=== PATIENT | female | born 1980 | race Caucasian/White ===

== ENCOUNTER → 2019-10-06 14:30 | Observation (INO) ==
[~2019-10-06 14:30] MED LIST: Rho Immune Globulin 1,500 UNIT SYRINGE IM ONE
[2019-10-06 14:45] VITALS: BP 128/74
== END | disposition home or self-care (01) ==
LOC: 1NENULAB
PROVIDERS: ADMIT Student in an Organized Health Care Education/Training Program; ATTEND Student in an Organized Health Care Education/Training Program

== ENCOUNTER 2020-03-25 03:21 | Observation (INO) ==
[2020-03-24 23:01] LABS: Bacteria,Urine Few per hpf (None-Few); Bilirubin,Urine Negative (Negative); Blood,Urine Trace (Negative); Clarity,Urine Turbid (Clear); Color,Urine Yellow (Yellow); Glucose,Urine (UA) Normal (Normal); Hyaline Casts,Urine Few per lpf (None Seen); Ketones,Urine Negative (Negative); Leukocyte Esterase,Urine Large (Negative); Mucus,Urine Few per lpf (None-Few); Nitrite,Urine Negative (Negative); PH,Urine 6.5 pH Units (5.0-8.0); Protein,Urine Trace mg/dL (Neg-Trace); Specific Gravity,Urine 1.017 (1.010-1.025); Squamous Epithelial Cell,Urine Few per hpf (None-Few); WBC,Urine TNTC per hpf (0-3)
[2020-03-25] MEDS: Ringers Solution, Lactated 1,000 ML IVC SCH ×3 (00:03→23:07)
[2020-03-25 00:35] LABS: Eosinophils % 0.5 %; Mean Corpuscular HGB Conc 32.5 g/dL (31.6-35.5); Mean Corpuscular Hemoglobin 28.5 pg (28.0-33.3)
[2020-03-25 00:37] LABS: Basophils % 0.2 %; Eosinophils # 0.1 K/mcL (0.0-0.6); Hematocrit 35.1 % (35.3-44.9); Hemoglobin 11.4 g/dL (11.5-15.4); Immature Granulocytes % 0.4 % (0-4); Immature Platelets 10.2 % (1.1-6.1); Lymphocytes # 2.5 K/mcL (0.6-4.6); Lymphocytes % 16.2 %; Mean Corpuscular Volume 87.8 fL (83.0-100.0); Mean Platelet Volume 11.2 fL (9.4-12.4); Monocytes % 6.5 %; Neutrophils # 11.5 K/mcL (1.6-8.9); Platelet Count 231 K/mcL (140-400); Red Cell Distribution Width 13.5 % (11.5-14.5); Segmented Neutrophils % 76.2 %; White Blood Count 15.1 K/mcL (4.3-11.1)
[2020-03-25 00:54] LABS: Alanine Aminotransferase 39 Units/L (7-52); Aspartate Amino Transferase 28 Units/L (13-39); BUN/Creatinine Ratio 27 (6-26); Blood Urea Nitrogen 13 mg/dL (6-20); Lactate Dehydrogenase 154 Units/L (140-271); Uric Acid 4.1 mg/dL (2.3-7.6); eGFR For African Americans > 60 (> 60); eGFR For Non-African Americans > 60 (> 60)
[2020-03-25 01:35] LABS: Protein/Creatinine Ratio,Urine 0.55 mg/mg (0.00-0.20)
[2020-03-25 01:36] LABS: Amphetamine Screen,Urine Negative ng/mL (Cutoff=1000); Barbiturate Screen,Urine Negative ng/mL (Cutoff=200); Benzodiazepines Screen,Urine Negative ng/mL (Cutoff=200); Cannabinoid Screen,Urine Negative ng/mL (Cutoff = 50); Cocaine Screen,Urine Negative ng/mL (Cutoff= 300); Opiate Screen,Urine Negative ng/mL (Cutoff=300); Phencyclidine Screen,Urine Negative ng/mL (Cutoff=25)
[~2020-03-25 03:21] MED LIST changes: +Acetaminophen IV 1,000 MG/100 ML INFUS..BTL IVPB ONE; -Rho Immune Globulin 1,500 UNIT SYRINGE IM ONE; +cefTRIAXone 1,000 MG in 0.9 % Sodium Chloride Mini Bag 100 ML IVPB ONE
[2020-03-25] MEDS: *HR* Buprenorphine HCl 8 MG TAB.SUBL SL SCH ×2 (08:33→20:27)
[2020-03-25] MEDS ORDERED: cefTRIAXone 1,000 MG in Water for inj. (sterile) 10 ML IVPB SCH (23:00)
[2020-03-26 07:51] VITALS: BP 112/62
[2020-03-26] MEDS: *HR* Buprenorphine HCl 8 MG TAB.SUBL SL SCH (08:22)
[2020-03-26] MEDS: Ringers Solution, Lactated 1,000 ML IVC SCH (08:23)
== END 2020-03-26 12:18 | disposition home or self-care (01) ==
LOC: 1NENULAB → 1NENUOBS 13:09
PROVIDERS: ADMIT Obstetrics & Gynecology; ATTEND Obstetrics & Gynecology

== ENCOUNTER → 2020-03-27 16:15 | Observation (INO) ==
[~2020-03-27 16:15] MED LIST changes: -Acetaminophen IV 1,000 MG/100 ML INFUS..BTL IVPB ONE; +FLU Vac QV 20-21 (6Month+)/PF 0.5 ML SYRINGE IM ONE; -cefTRIAXone 1,000 MG in 0.9 % Sodium Chloride Mini Bag 100 ML IVPB ONE
== END | disposition home or self-care (01) ==
LOC: 1NENULAB
PROVIDERS: ADMIT Obstetrics & Gynecology; ATTEND Obstetrics & Gynecology

== ENCOUNTER 2020-04-04 01:17 | Inpatient (IN) ==
[2020-04-04 00:55] LABS: Bacteria,Urine Few per hpf (None-Few); Bilirubin,Urine Negative (Negative); Blood,Urine Negative (Negative); Clarity,Urine Clear (Clear); Color,Urine Yellow (Yellow); Glucose,Urine (UA) Normal (Normal); Ketones,Urine Negative (Negative); Leukocyte Esterase,Urine Small (Negative); Nitrite,Urine Negative (Negative); Protein,Urine Negative (Neg-Trace); RBC,Urine 0-3 per hpf (0-3); Specific Gravity,Urine 1.024 (1.010-1.025); Squamous Epithelial Cell,Urine Few per hpf (None-Few); Urobilinogen,Urine Normal (Normal)
[~2020-04-04 01:17] MED LIST changes: +Azithromycin 500 MG in 0.9 % Sodium Chloride 250 ML IVPB ONE; -FLU Vac QV 20-21 (6Month+)/PF 0.5 ML SYRINGE IM ONE; +Famotidine 20 MG/2 ML VIAL IVP PRN; +Lidocaine 1% 20 ML MDV INFILT PRN; +Metoclopramide 10 MG/2 ML VIAL IVP PRN; +Naloxone 0.4 MG/ML INJ IVP PRN; +Ondansetron 4 MG/2 ML VIAL IVP PRN
[2020-04-04 01:57] LABS: Basophils % 0.3 %; Eosinophils # 0.2 K/mcL (0.0-0.6); Eosinophils % 1.7 %; Hematocrit 34.6 % (35.3-44.9); Hemoglobin 11.2 g/dL (11.5-15.4); Immature Granulocytes % 0.8 % (0-4); Lymphocytes # 3.1 K/mcL (0.6-4.6); Lymphocytes % 26.5 %; Mean Corpuscular HGB Conc 32.4 g/dL (31.6-35.5); Mean Corpuscular Hemoglobin 28.5 pg (28.0-33.3); Mean Platelet Volume 10.2 fL (9.4-12.4); Monocytes # 0.6 K/mcL (0.0-1.3); Monocytes % 5.1 %; Neutrophils # 7.5 K/mcL (1.6-8.9); Platelet Count 317 K/mcL (140-400); Red Blood Count 3.93 M/mcL (3.82-4.97); Red Cell Distribution Width 13.5 % (11.5-14.5); Segmented Neutrophils % 65.6 %; White Blood Count 11.5 K/mcL (4.3-11.1)
[2020-04-04 02:31] LABS: Amphetamine Screen,Urine Negative ng/mL (Cutoff=1000); Barbiturate Screen,Urine Negative ng/mL (Cutoff=200); Benzodiazepines Screen,Urine Negative ng/mL (Cutoff=200); Cannabinoid Screen,Urine Negative ng/mL (Cutoff = 50); Cocaine Screen,Urine Negative ng/mL (Cutoff= 300); Opiate Screen,Urine Negative ng/mL (Cutoff=300); Phencyclidine Screen,Urine Negative ng/mL (Cutoff=25)
[2020-04-04] MEDS: *HR* Buprenorphine HCl 8 MG TAB.SUBL SL SCH (02:34)
[2020-04-04] MEDS: Ringers Solution, Lactated 1,000 ML IVC SCH ×3 (05:37→17:02)
[2020-04-04] MEDS: Oxytocin 20 units/ LR 1000 mL 20 UNIT/1,000 ML BAG IVC SCH ×2 (05:44→18:00)
[2020-04-04] MEDS ORDERED: *HR* FentaNYL (PF) 100 MCG/2 ML VIAL IVP PRN (08:38)
[2020-04-04] MEDS ORDERED: Nicotine 21 MG PATCH.TD24 TD SCH (09:45)
[2020-04-04] MEDS ORDERED: *HR* FentaNYL (PF) 100 MCG/2 ML VIAL EP ONE (10:05)
[2020-04-04] MEDS ORDERED: Bupivacaine-MPF 0.25% 10 ML VIAL EP ONE (10:05)
[2020-04-04] MEDS ORDERED: EPHEDrine 50 MG/ML VIAL IVP PRN (10:05)
[2020-04-04] MEDS ORDERED: *HR* FentaNYL (PF) 100 MCG/2 ML VIAL ONE (10:12)
[2020-04-04] MEDS ORDERED: Bupivacaine-MPF 0.25% 10 ML VIAL ONE (10:12)
[2020-04-04] MEDS: Epidural Premix (fent/bupiv) 110 ML EP SCH ×2 (14:29→20:40)
[2020-04-04] MEDS: D5% in 0.45% NACL 1,000 ML IVC SCH (18:37)
[2020-04-05] MEDS: D5% in 0.45% NACL 1,000 ML IVC SCH (01:58)
[2020-04-05] MEDS: Epidural Premix (fent/bupiv) 110 ML EP SCH (04:47)
[2020-04-05] MEDS: *HR* Buprenorphine HCl 8 MG TAB.SUBL SL SCH ×2 (09:08→20:37)
[2020-04-05] MEDS ORDERED: Lidocaine -MPF 2% 5 ML VIAL ONE (13:14)
[2020-04-05] MEDS ORDERED: Ondansetron 4 MG/2 ML VIAL ONE (13:14)
[2020-04-05] MEDS ORDERED: Dexamethasone 4 MG/ML VIAL ONE (13:14)
[2020-04-05] MEDS ORDERED: *HR* FentaNYL (PF) 100 MCG/2 ML VIAL ONE (13:14)
[2020-04-05] MEDS ORDERED: *HR* Midazolam HCl 2 MG/2 ML VIAL ONE (13:14)
[2020-04-05] MEDS ORDERED: *HR* Propofol 200 MG/20 ML VIAL IVP ONE (13:14)
[2020-04-05] MEDS ORDERED: *HR* Succinylcholine 200 MG/10 ML VIAL IVP ONE (13:16)
[2020-04-05] MEDS ORDERED: Methylergonovine 0.2 MG/ML AMPUL IM ONE (13:49)
[2020-04-05] MEDS ORDERED: Acetaminophen IV 1,000 MG/100 ML INFUS..BTL IVPB ONE (14:17)
[2020-04-05] MEDS ORDERED: *HR* HYDROmorphone 2 MG/ML SYRINGE IVP ONE (15:02)
[2020-04-05] MEDS ORDERED: CeFAZolin Syr 2,000MG/20 ML 2,000 MG/20 ML SYRINGE IVPB SCH (16:41)
[2020-04-05] MEDS ORDERED: Rho Immune Globulin 1,500 UNIT SYRINGE IM PRN (16:41)
[2020-04-05] MEDS ORDERED: Benzocaine/Menthol 56 GM AEROSOL SPRAY TP PRN (16:41)
[2020-04-05] MEDS ORDERED: Lanolin 7 G OINT...G. TP PRN (16:41)
[2020-04-05] MEDS ORDERED: Lidocaine/EPI 1:100k 1% 30 ML VIAL INFILT ONE (16:41)
[2020-04-05] MEDS ORDERED: Oxytocin 20 units/ LR 1000 mL 20 UNIT/1,000 ML BAG IVC SCH (16:41)
[2020-04-05] MEDS: Ibuprofen 600 MG TABLET PO PRN ×2 (17:17→22:44)
[2020-04-05] MEDS: CeFAZolin 2 GM/120 ML BAG IVPB SCH ×2 (17:37→23:55)
[2020-04-05] MEDS: Acetaminophen 325 MG TABLET PO PRN (20:37)
[2020-04-06] MEDS: cephALEXin 500 MG CAPSULE PO SCH ×5 (00:11→20:03)
[2020-04-06] MEDS: Acetaminophen 325 MG TABLET PO PRN ×3 (02:52→23:46)
[2020-04-06 04:34] LABS: Basophils % 0.2 %; Hematocrit 28.6 % (35.3-44.9); Immature Granulocytes % 0.6 % (0-4); Lymphocytes % 12.8 %; Mean Corpuscular HGB Conc 32.9 g/dL (31.6-35.5); Mean Corpuscular Volume 88.3 fL (83.0-100.0); Mean Platelet Volume 10.5 fL (9.4-12.4); Monocytes # 1.1 K/mcL (0.0-1.3); Monocytes % 4.8 %; Platelet Count 293 K/mcL (140-400); Red Blood Count 3.24 M/mcL (3.82-4.97); Red Cell Distribution Width 13.5 % (11.5-14.5); Segmented Neutrophils % 81.6 %
[2020-04-06 04:35] LABS: Basophils # 0.1 K/mcL (0.0-0.2); Hemoglobin 9.4 g/dL (11.5-15.4); White Blood Count 23.3 K/mcL (4.3-11.1)
[2020-04-06] MEDS: Ibuprofen 600 MG TABLET PO PRN ×3 (06:08→20:03)
[2020-04-06] MEDS: Prenatal Vit/FA 1 EACH TABLET PO SCH (08:28)
[2020-04-06] MEDS: *HR* Buprenorphine HCl 8 MG TAB.SUBL SL SCH ×2 (08:29→20:04)
[2020-04-06] MEDS ORDERED: Menthol 9.1 MG LOZENGE PO PRN (10:39)
[2020-04-06] MEDS ORDERED: Chloraseptic Spray 177 ML BOTTLE MM PRN (10:39)
[2020-04-07] MEDS: Ibuprofen 600 MG TABLET PO PRN (03:03)
[2020-04-07 07:50] VITALS: BP 122/69
[2020-04-07] MEDS: *HR* Buprenorphine HCl 8 MG TAB.SUBL SL SCH (08:26)
[2020-04-07] MEDS: Prenatal Vit/FA 1 EACH TABLET PO SCH (08:26)
[2020-04-07] MEDS: cephALEXin 500 MG CAPSULE PO SCH (08:27)
[2020-04-07 12:06] LABS: Basophils % 0.4 %; Eosinophils # 0.2 K/mcL (0.0-0.6); Eosinophils % 2.3 %; Hematocrit 25.2 % (35.3-44.9); Hemoglobin 8.1 g/dL (11.5-15.4); Immature Granulocytes % 0.7 % (0-4); Lymphocytes # 3.2 K/mcL (0.6-4.6); Lymphocytes % 33.1 %; Mean Corpuscular HGB Conc 32.1 g/dL (31.6-35.5); Mean Corpuscular Hemoglobin 28.6 pg (28.0-33.3); Mean Platelet Volume 10.3 fL (9.4-12.4); Monocytes # 0.6 K/mcL (0.0-1.3); Monocytes % 6.6 %; Neutrophils # 5.5 K/mcL (1.6-8.9); Platelet Count 305 K/mcL (140-400); Red Blood Count 2.83 M/mcL (3.82-4.97); Segmented Neutrophils % 56.9 %; White Blood Count 9.7 K/mcL (4.3-11.1)
== END 2020-04-07 13:50 | disposition home or self-care (01) | DRG 560 ==
LOC: 1NENULAB → 1NENUOBS 04-05 16:07
PROVIDERS: ADMIT Obstetrics & Gynecology; ATTEND Obstetrics & Gynecology